=== PATIENT | female | born 1960 | race Caucasian/White ===

== ENCOUNTER 2020-07-01 11:05 | Emergency (ER) | payer OTHER ==
[2020-07-01 11:21] VITALS: BP 124/80; PULSE 65; RESP 16; TEMP 98.3
[2020-07-01] MEDS ORDERED: DIPH,PERTUS(ACELL)TETVAC-LF 0.5 ML VIAL IM ONE (11:58)
[2020-07-01] MEDS ORDERED: LIDOCAINE 1% INJ 10MG/ML (20 ML MDV) SQ STA (11:58)
[2020-07-01] MEDS ORDERED: Acetaminophen-Codeine 300-30mg TAB PO STA (11:59)
--- NOTE | 2020-07-01 12:42 | CT ---
EXAMINATION TYPE: CT brain cspine wo con, CT facial bones wo con DATE OF EXAM: 07/01/2020 COMPARISON: NONE HISTORY: Trauma today. head and facial along with neck pain. CT DLP: 1349.7 mGycm. Automated Exposure Control for Dose Reduction was Utilized. TECHNIQUE: CT scan of the head and cervical spine are performed without contrast. FINDINGS: There is no acute intracranial hemorrhage, mass effect, or midline shift identified. The ventricles and sulci are within normal limits in size. Some low attenuation in the deep and perivent ricular white matter. The calvarium is intact. The mandible is intact. The temporomandibular joints are maintained bilaterally. Nasal bones are inta ct. Nasal septum slightly deviated to left of midline. Orbital floors and nina are intact. The globe s are intact bilaterally. Intraconal fat is preserved bilaterally. Zygomatic arches are intact. The p terygoid plates are intact. There is large mucous retention cyst or polyp in the inferior posterior l eft maxillary sinus otherwise paranasal sinuses are clear. Cervical spine is visualized in its entirety from C1 through upper thoracic levels and demonstrates s traightened alignment without evidence of acute fracture or dislocation. Prevertebral soft tissue ap pears within normal limits. The C1-C2 articulation is within normal limits on the coronal images. Ve rtebral body heights and disc space heights are maintained. Posterior spur disc complexes efface the anterior thecal sac at C4-C5 and C5-C6 levels on sagittal and axial images. [id number] multilev el anterior spurring is present. Review of axial images shows multiple vertebral facet degenerative c hanges at left C2-C3 and C3-C4 level along with right-sided uncovertebral facet spurring at C4-C5 lev el. Thyroid gland is small in size. Lung apices show no pneumothorax. IMPRESSION: 1. There is no acute fracture or dislocation evident in the cervical spine. 2. No acute intracranial hemorrhage or midline shift is seen. \3. No acute displaced facial bone fracture.
--- NOTE | 2020-07-01 12:54 | XR ---
EXAMINATION TYPE: XR knee complete LT DATE OF EXAM: 07/01/2020 CLINICAL HISTORY: Pain after fall injury. TECHNIQUE: Three views of the left knee are obtained. COMPARISON: None. FINDINGS: There is no acute fracture/dislocation evident in left knee. Metallic hardware from total left knee arthroplasty is satisfactory in position. The overlying soft tissue appears unremarkable. IMPRESSION: As above.
--- NOTE | 2020-07-01 12:56 | XR ---
EXAMINATION TYPE: XR Hip RT and AP Pelvis DATE OF EXAM: 07/01/2020 COMPARISON: NONE HISTORY: Trauma and pain TECHNIQUE: AP view of the pelvis is obtained on 2 images. Two views of the right hip are obtained. FINDINGS: There is no acute fracture/dislocation evident in the pelvis. The hip and sacroiliac join ts appear symmetric and unremarkable. The overlying soft tissue appears unremarkable. Two views of right hip show no acute fracture or dislocation. No focal lytic or sclerotic lesion see n in the proximal right femur. The overlying soft tissue is unremarkable. IMPRESSION: There is no acute fracture or dislocation in the pelvis or right hip.
--- NOTE | 2020-07-01 12:58 | XR ---
Right shoulder HISTORY: Trauma and pain 3 views the right shoulder correlated prior exam 08/13/2013 Arthropathy is present at the acromioclavicular joint. Pseudocyst formation suspected within the carmina ral head. There is arthropathy at the glenohumeral joint. Right lung apex as visualized is normal. Lauro ne mineralization and alignment are maintained. IMPRESSION: No fracture or dislocation.
--- NOTE | 2020-07-01 13:10 | ED ---
General Adult HPI - General Chief complaint: Fall Stated complaint: fall head lac Time Seen by Provider: 07/01/20 11:22 Source: patient, RN notes reviewed Mode of arrival: wheelchair Limitations: no limitations - History of Present Illness Initial comments: CT facial bones shows no acute fracture. CT cervical spine shows no acute fracture or dislocation. CT head shows no acute intracranial hemorrhage or midline shift. X-ray of the right hip and pelvis shows no acute fracture x-ray of the right knee shows no acute fracture or dislocation. Metallic hardware in satisfactory position. X-ray of the right shoulder shows no fracture or dislocation. - Related Data Home Medications Medication Instructions Recorded Confirmed No Known Home Medications 07/01/20 07/01/20 Allergies Allergy/AdvReac Type Severity Reaction Status Date / Time bee pollen Allergy Swelling Verified 07/01/20 11:16 cortisone Allergy Swelling Verified 07/01/20 11:16 hydrocodone bitartrate Allergy Anaphylaxis Verified 07/01/20 11:16 [From Vicodin] Latex, Natural Rubber Allergy skin Verified 07/01/20 11:16 blisters propoxyphene napsylate Allergy Anaphylaxis Verified 07/01/20 11:16 [From Darvocet-N 100] Sulfa (Sulfonamide Allergy Anaphylaxis Verified 07/01/20 11:16 Antibiotics) adhesive tape AdvReac Rash/Hives/ Verified 07/01/20 13:24 Blisters Review of Systems ROS Statement: Those systems with pertinent positive or pertinent negative responses have been documented in the HPI. ROS Other: All systems not noted in ROS Statement are negative. Past Medical History Additional Past Medical History / Comment(s): right shoulder pain History of Any Multi-Drug Resistant Organisms: None Reported Past Surgical History: Hysterectomy, Joint Replacement, Orthopedic Surgery, Tubal Ligation Additional Past Surgical History / Comment(s): RIGHT KNEE SX X2 LAST ONE IN 2001, vaginal cyst removed, D & C. lt knee replacement Past Anesthesia/Blood Transfusion Reactions: No Reported Reaction Past Psychological History: No Psychological Hx Reported Smoking Status: Never smoker Past Alcohol Use History: Rare Past Drug Use History: None Reported - Past Family History Father Family Medical History: Cancer General Exam Limitations: no limitations Course Vital Signs 07/01/20 11:16 Temperature 98.3 F Pulse Rate 65 Respiratory 16 Rate Blood Pressure 124/80 O2 Sat by Pulse 99 Oximetry Procedures - Laceration Laceration #1 Consent Obtained: verbal consent Indication: laceration Site: face Size (cm): 3 Description: linear Depth: simple, single layer Type of Sutures: other (MicroMed) Technique: simple, interrupted Patient Tolerated Procedure: well, no complications Medical Decision Making - Medical Decision Making Vitals are stable. HPI and physical exam is documented. Patient is well- appearing however he does have a 3 cm laceration noted to the midforehead. GCS 15. Alert and oriented. CT cervical spine shows no acute fracture or dislocation. CT brain shows no acute intracranial hemorrhage or midline shift. CT facial bones shows no acute displaced facial bone fracture. X-ray of the right hip shows no acute fracture or dislocation. Patient is ambulatory in the right hip. X-ray of the right knee is unremarkable. No acute fracture or dislocation. Hardware is in satisfactory position. Shoulder x-ray shows no fracture or dislocation. Laceration was repaired using MicroMed. Patient will follow-up with primary care. She'll return here for any worsening symptoms. Disposition Clinical Impression: Laceration, Fall, Head injury Disposition: HOME SELF-CARE Condition: Good Instructions (If sedation given, give patient instructions): Laceration (ED), Head Injury (ED) Additional Instructions: Please monitor for signs of infection such as spreading or streaking redness, drainage, or fever. Stitches can be removed in 5 days. You may do this at home or come back to the ER. Return to the emergency room for any worsening symptoms. Is patient prescribed a controlled substance at d/c from ED?: No Referrals: Heriberto Herrera MD [Primary Care Provider] - 1-2 days Time of Disposition: 13:34
[2020-07-01] MEDS ORDERED: ACET/COD 300 MG/30 MG STARTER PACK 6 TAB BTL PO STA (13:33)
== END 2020-07-01 13:46 | disposition home or self-care (01) ==
LOC: EC 11:05
DX: S01.91XA Laceration without foreign body of unspecified part of head, initial encounter (principal); Z23 Encounter for immunization; Z96.652 Presence of left artificial knee joint; Z91.030 Bee allergy status; Z88.2 Allergy status to sulfonamides; Z88.5 Allergy status to narcotic agent; Z88.6 Allergy status to analgesic agent; Z88.8 Allergy status to other drugs, medicaments and biological substances; Z91.040 Latex allergy status; Z91.048 Other nonmedicinal substance allergy status; W01.0XXA Fall on same level from slipping, tripping and stumbling without subsequent striking against object, initial encounter
CPT/HCPCS: 73502; 73030; 73562; 72125; 70486; 70450; 90715; 99283; 12013; 90471; J2001

== ENCOUNTER 2021-01-18 03:19 | Observation (INO) | payer OTHER ==
--- NOTE | 2021-01-18 03:30 | ED ---
ENT HPI - General Chief complaint: ENT Stated complaint: earache Time Seen by Provider: 01/18/21 03:22 Source: patient Mode of arrival: ambulatory Limitations: no limitations - Related Data Previous Rx's Medication Instructions Recorded Amoxic-Pot Clav 875-125Mg 1 tab PO Q12HR #20 tablet 01/18/21 [Augmentin 875-125] Allergies Allergy/AdvReac Type Severity Reaction Status Date / Time bee pollen Allergy Swelling Verified 01/18/21 03:23 cortisone Allergy Swelling Verified 01/18/21 03:23 hydrocodone bitartrate Allergy Anaphylaxis Verified 01/18/21 03:23 [From Vicodin] Latex, Natural Rubber Allergy skin Verified 01/18/21 03:23 blisters propoxyphene napsylate Allergy Anaphylaxis Verified 01/18/21 03:23 [From Darvocet-N 100] Sulfa (Sulfonamide Allergy Anaphylaxis Verified 01/18/21 03:23 Antibiotics) adhesive tape AdvReac Rash/Hives/ Verified 01/18/21 03:23 Blisters Review of Systems ROS Statement: Those systems with pertinent positive or pertinent negative responses have been documented in the HPI. ROS Other: All systems not noted in ROS Statement are negative. Past Medical History Additional Past Medical History / Comment(s): right shoulder pain History of Any Multi-Drug Resistant Organisms: None Reported Past Surgical History: Hysterectomy, Joint Replacement, Orthopedic Surgery, Tubal Ligation Additional Past Surgical History / Comment(s): RIGHT KNEE SX X2 LAST ONE IN 2001, vaginal cyst removed, D & C. lt knee replacement Past Anesthesia/Blood Transfusion Reactions: No Reported Reaction Past Psychological History: No Psychological Hx Reported Smoking Status: Never smoker Past Alcohol Use History: Rare Past Drug Use History: None Reported - Past Family History Father Family Medical History: Cancer General Exam Limitations: no limitations Course Vital Signs 01/18/21 03:19 Temperature 97.9 F Pulse Rate 80 Respiratory 20 Rate Blood Pressure 142/85 O2 Sat by Pulse 99 Oximetry Medical Decision Making - Lab Data Result diagrams: 01/18/21 04:42 Lab Results 01/18/21 Range/Units 04:42 WBC 5.7 (3.8-10.6) k/uL RBC 4.88 (3.80-5.40) m/uL Hgb 15.7 (11.4-16.0) gm/dL Hct 45.6 (34.0-46.0) % MCV 93.4 (80.0-100.0) fL MCH 32.2 (25.0-35.0) pg MCHC 34.4 (31.0-37.0) g/dL RDW 12.3 (11.5-15.5) % Plt Count 164 (150-450) k/uL MPV 7.5 Neutrophils % 58 % Lymphocytes % 29 % Monocytes % 8 % Eosinophils % 3 % Basophils % 1 % Neutrophils # 3.4 (1.3-7.7) k/uL Lymphocytes # 1.6 (1.0-4.8) k/uL Monocytes # 0.4 (0-1.0) k/uL Eosinophils # 0.2 (0-0.7) k/uL Basophils # 0.1 (0-0.2) k/uL - EKG Data -: EKG Interpreted by Me (EKG shows nsr 66 SC 188 QRS 78 QTc 436) Disposition Clinical Impression: Neuralgia Condition: Good Prescriptions: Amoxic-Pot Clav 875-125Mg [Augmentin 875-125] 1 tab PO Q12HR #20 tablet Is patient prescribed a controlled substance at d/c from ED?: No Referrals: None,Stated [Primary Care Provider] - 1-2 days
[2021-01-18] MEDS ORDERED: MORPHINE SULFATE 4 MG/ML SYRINGE IV STA (03:39)
[2021-01-18] MEDS ORDERED: PIPERACILLIN-TAZOBACTAM 3.375 GM in SODIUM CHLORIDE 0.9% 100 ML IVPB STA (03:39)
[2021-01-18] MEDS ORDERED: SODIUM CHLORIDE 0.9% 1,000 ML IV STA ×2 (03:39)
--- NOTE | 2021-01-18 05:00 | CT ---
EXAM: CT Temporal Bones Without Intravenous Contrast CLINICAL HISTORY: ITS.REASON CT Reason: mastoiditis TECHNIQUE: Axial computed tomography images of the temporal bones without intravenous contrast. CTDI is 28.17 mGy and DLP is 303.7 mGy-cm. This CT exam was performed using one or more of the following dose reduction techniques: automated exposure control, adjustment of the mA and/or kV according to patient size, and/or use of iterative reconstruction technique. COMPARISON: No relevant prior studies available. FINDINGS: Right ossicles and middle ear: Unremarkable. Right cochlea: Unremarkable. Right vestibule: Unremarkable. Right semicircular canals: Unremarkable. Right vestibular and cochlear aqueducts: Unremarkable. Right facial nerve canal: Unremarkable. Right internal auditory canal: Unremarkable. Right external auditory canal: Unremarkable. Right carotid canal: Unremarkable. Right jugular foramen: Unremarkable. Right mastoid air cells: Unremarkable. Right temporomandibular joint: Unremarkable. Left ossicles and middle ear: Unremarkable. Left cochlea: Unremarkable. Left vestibule: Unremarkable. Left semicircular canals: Unremarkable. Left vestibular and cochlear aqueducts: Unremarkable. Left facial nerve canal: Unremarkable. Left internal auditory canal: Unremarkable. Left external auditory canal: Unremarkable. Left carotid canal: Unremarkable. Left jugular foramen: Unremarkable. Left mastoid air cells: Unremarkable. Left temporomandibular joint: Unremarkable. Bones/joints: No acute fracture. Soft tissues: Unremarkable. Left maxillary sinus mucosal retention cyst. IMPRESSION: No evidence of mastoiditis.
[2021-01-18] MEDS ORDERED: KETOROLAC 15 MG/ML 1 ML VIAL IVP STA (05:05)
[2021-01-18] MEDS ORDERED: ACET/COD 300 MG/30 MG STARTER PACK 6 TAB BTL PO STA (05:05)
[2021-01-18] MEDS ORDERED: CIPROFLOXACIN-DEXAMETH 0.3-0.1% DROPS 7.5 ML BTL RIGHT EAR STA (05:05)
[2021-01-18 05:06] LABS: Basophils # (A) 0.1 k/uL (0-0.2); Basophils % (A) 1 %; Eosinophils # (A) 0.2 k/uL (0-0.7); Eosinophils % (A) 3 %; HCT 45.6 % (34.0-46.0); HGB 15.7 gm/dL (11.4-16.0); Lymphocytes # (A) 1.6 k/uL (1.0-4.8); Lymphocytes % (A) 29 %; MCH 32.2 pg (25.0-35.0); MCHC 34.4 g/dL (31.0-37.0); MCV 93.4 fL (80.0-100.0); Mean Platelet Volume 7.5; Monocytes # (A) 0.4 k/uL (0-1.0); Monocytes % (A) 8 %; Neutrophils # (A) 3.4 k/uL (1.3-7.7); Neutrophils % (A) 58 %; Platelet Count 164 k/uL (150-450); RBC 4.88 m/uL (3.80-5.40); RDW 12.3 % (11.5-15.5); WBC 5.7 k/uL (3.8-10.6)
[2021-01-18] MEDS ORDERED: carBAMazepine 300 MG CPMP.12HR PO STA (05:13)
[2021-01-18] MEDS ORDERED: HYDROmorphone 1 MG/ML 1 ML SYRINGE IVP STA (05:13)
[2021-01-18 05:16] LABS: INR 0.9 (<1.2); Partial Thromboplastin Time 22.1 sec (22.0-30.0); Prothrombin Time 9.5 sec (9.0-12.0)
[2021-01-18 05:17] LABS: Albumin 4.5 g/dL (3.5-5.0); Calcium 9.6 mg/dL (8.4-10.2); Total Bilirubin 0.5 mg/dL (0.2-1.3); Total Protein 7.6 g/dL (6.3-8.2)
[2021-01-18 05:41] LABS: Magnesium 2.1 mg/dL (1.6-2.3); Potassium 4.5 mmol/L (3.5-5.1)
[2021-01-18 06:00] LABS: Appearance,Urine Clear (Clear); Bilirubin,Urine Negative (Negative); Blood,Urine Negative (Negative); Color,Urine Yellow; Glucose,Urine (UA) Negative (Negative); Ketones,Urine Negative (Negative); Leukocyte Esterase,Urine Negative (Negative); Nitrite,Urine Negative (Negative); PH, Urine 5.5 (5.0-8.0); Protein,Urine Negative (Negative); Specific Gravity,Urine 1.021 (1.001-1.035); Urobilinogen,Urine <2.0 mg/dL (<2.0)
[2021-01-18 06:53] VITALS: RESP 18
[2021-01-18 08:32] VITALS: TEMP 97.8
[2021-01-18] MEDS ORDERED: IBUPROFEN 400 MG TAB PO PRN (09:32)
[2021-01-18] MEDS ORDERED: ACETAMINOPHEN TAB 325 MG TAB PO PRN (09:32)
[2021-01-18] MEDS ORDERED: PREGABALIN 75 MG CAP PO SCH ×2 (11:30→12:00)
--- NOTE | 2021-01-18 12:04 | P.CNNES ---
History of Present Illness Consult date: 01/18/21 Requesting physician: Mainnder De La Cruz Reason for Consult: Trigeminial Neuralgia History of Present Illness: This is a 60 year-old woman with history of left knee replacement and tobacco use the presented emergency department on 01/18/2021 for pain behind the right ear. According to the patient she notes that she's having pain behind the right ear that started this past Monday and would that be intermittent. She had a hard time describing it but she said the somewhat like electrical shock but not exactly and the last few seconds then resolved I would happened the every couple minutes. She felt the severity of the pain was getting worse at. As well as she is having the pain around the ear she said it wasn't in her ear but just felt outside. Denies any numbness tingling over the face, visual disturbance, any the numbness tingling of her upper or lower extremities, any focal weakness, any difficulty swallowing or difficulty getting her words out. Denies of any history of stroke or TIAs in the past. Because of the severity of the pain she was taking [id number] pain medication such as ibuprofen and she said that that wasn't helping. He denies off any fever, and hearing loss. She was given multiple pain medication the hospital and she felt that she's doing much better and that pain control. She denies any history of headaches in the past. Denies any history of multiple sclerosis. Patient stated that one pack lasting for 3 days. She smokes on and off throughout her life but she says she had more nonsmoking days than smoking. She socially drinks alcohol. Some of the work-up in the hospital consisted of: Initial vital signs: Blood pressure of 142/85, heart rate of 80, temperature of 97.9 Fahrenheit oral, respiratory of 20 pulse ox of 99% room air. CT temporal bone without contrast is reported as no evidence of mastoiditis. White blood cell is 5.7 which is normal. Basic chemistry panel is the pertinent positive was the CK level of 179 is mildly elevated. Otherwise rest of basic chemistry panel are within normal limits. Review of Systems Review of system: The 12 point system was reviewed and apparent positive and negative per HPI. Past Medical History Additional Past Medical History / Comment(s): right shoulder pain History of Any Multi-Drug Resistant Organisms: None Reported Past Surgical History: Hysterectomy, Joint Replacement, Orthopedic Surgery, Tubal Ligation Additional Past Surgical History / Comment(s): RIGHT KNEE SX X2 LAST ONE IN 2001, vaginal cyst removed, D & C. lt knee replacement Past Anesthesia/Blood Transfusion Reactions: No Reported Reaction Past Psychological History: No Psychological Hx Reported Smoking Status: Never smoker Past Alcohol Use History: Rare Past Drug Use History: None Reported - Past Family History Father Family Medical History: Cancer Medications and Allergies Home Medications Medication Instructions Recorded Confirmed Type Pregabalin [Lyrica] 150 mg PO BID #20 cap 01/18/21 Rx Allergies Allergy/AdvReac Type Severity Reaction Status Date / Time bee pollen Allergy Swelling Verified 01/18/21 07:12 cortisone Allergy Swelling Verified 01/18/21 07:12 hydrocodone bitartrate Allergy Anaphylaxis Verified 01/18/21 07:12 [From Vicodin] Latex, Natural Rubber Allergy skin Verified 01/18/21 07:12 blisters propoxyphene napsylate Allergy Anaphylaxis Verified 01/18/21 07:12 [From Darvocet-N 100] Sulfa (Sulfonamide Allergy Anaphylaxis Verified 01/18/21 07:12 Antibiotics) adhesive tape AdvReac Rash/Hives/ Verified 01/18/21 07:12 Blisters Physical Examination - Vital Signs Vital Signs: Vital Signs Temp Pulse Resp BP Pulse Ox 01/18/21 10:05 66 18 109/64 96 01/18/21 08:31 97.8 F 64 18 104/63 98 01/18/21 06:51 67 18 102/72 97 01/18/21 03:19 97.9 F 80 20 142/85 99 Intake and Output 01/17/21 01/18/21 01/18/21 22:59 06:59 14:59 Other: Weight 95.254 kg GENERAL: The patient is lying in bed and is not in acute distress. HENT: Tenderness to touch over the right mastoid region. No redness of the region. CHEST: The heart rate is regular rate rhythm. No murmurs to auscultation. No carotid bruit bilaterally. LUNG: Clear to auscultation bilaterally no wheezing noted throughout. Not labored breathing. ABDOMEN/GI: Bowel sounds present in all 4 quadrants. No tenderness to palpation throughout. NEUROLOGICAL: Higher mental function: The patient is awake, alert, oriented to self, place and time. Patient is following commands. No aphasia and no neglect. Cranial nerves: The pupils are round, equal and reactive to light and accommodation. Visual kaur are full to confrontation throughout. Extraocular movement is intact no nystagmus is noted. Facial sensation is normal to touch throughout. The facial strength is normal throughout. Hearing is normal bilaterally to hand rub. Tongue is midline and moved [id number] without any difficulty. No dysarthria is noted. Rotating the head was slightly limited to because of pain but was able to rotated entirely to right and left. Shoulder shrug is normal bilaterally. Motor: Gait is normal with normal arm swings. The strength is 5 over 5 throughout. Normal tone and bulk. Cerebellum: Normal finger to nose bilaterally. Sensation: Sensation is normal to touch throughout. Reflexes (right/left): 1+ of left knee (knee replacement) and bilateral ankles. Otherwise 2+ throughout. Plantars are downgoing bilaterally. Results Urinalysis is negative for urinary tract infection. Spangler virus PCR was not detected - Laboratory Findings CBC and BMP: 01/18/21 04:42 01/18/21 04:42 Abnormal Lab Findings: Abnormal Labs 01/18/21 04:42 Chloride 109 H BUN 27 H Creatine Kinase 179 H Assessment and Plan Assessment: Pain over the right mastoid. Rule out mastoiditis. Another possibility is occipital neuralgia. Trigemenial Neuralgia (low on differential since not involving V1/V2 or V3 distribution). Tobacco use Plan: Patient also was given Zosyn once in the ED, Dilaudid once morphine 4 mg once and Toradol 50 mg once in the ED. I ordered CT of the brain with and without. I recommend MRI of the brain with and without, MRI of the mastoid and MRI of auditory (right) and patient stated she wants them as outpatient since does not want to wait in the hospital. The patient was started on Tegretol 600 mg once in the ED then was started on Tegretol 300 mg 1 tablet twice a day by ED team. I decreased the Tegretol to 200 mg daily and down the line can be titrated up if needed. I started the patient on Lyrica 75 mg 1 tablet twice a day (she said she could not tolerate Gabapentin in the past). Recommend the patient to follow-up with Neurologist and ENT specialist as an outpatient within 1-2 weeks. We'll defer the rest of the medical management to the primary team. Thank you for the consult. Darren Oconnor M.D. Neuro-hospitalist Time with Patient: Greater than 30
--- NOTE | 2021-01-18 12:56 | P.HPIM ---
History of Present Illness 60-year-old female came in with the pain in the right mastoid area which is a sharp and electric shocklike sensation. Patient denied anything and pain on the face. Patient appears to have tenderness in the sternocleidomastoid insertion location on the mastoid. Patient doesn't have any problem with neck movements denied any neck pain. Initial concern was mastoiditis although ear cannot CT was negative for any infection patient the ear exam was within normal limits except for some tenderness in the mastoid area as mentioned above. Patient was a valid by neurology for possibility of trigeminal neuralgia patient clinically doesn't appear to have trigeminal neuralgia patient was started on Cardizem pain which will be discontinued. Neurology is a 20 CT of the head. Patient was taking Motrin and Tylenol at home without any significant improvement in her pain. A CT of the head didn't show any significant abnormality, patient will be discharged on lyrica as recommended by neurology. Review of Systems REVIEW OF SYSTEMS: CONSTITUTIONAL: No fever, no malaise, no fatigue. HEENT: No recent visual problems or hearing problems. Denied any sore throat. CARDIOVASCULAR: No chest pain, orthopnea, PND, no palpitations, no syncope. PULMONARY: No shortness of breath, no cough, no hemoptysis. GASTROINTESTINAL: No diarrhea, no nausea, no vomiting, no abdominal pain. NEUROLOGICAL: No headaches, no weakness, no numbness. HEMATOLOGICAL: Denies any bleeding or petechiae. GENITOURINARY: Denies any burning micturition, frequency, or urgency. MUSCULOSKELETAL/RHEUMATOLOGICAL: Denies any joint pain, swelling, or any muscle pain. ENDOCRINE: Denies any polyuria or polydipsia. The rest of the 14-point review of systems is negative. Past Medical History Additional Past Medical History / Comment(s): right shoulder pain History of Any Multi-Drug Resistant Organisms: None Reported Past Surgical History: Hysterectomy, Joint Replacement, Orthopedic Surgery, Tubal Ligation Additional Past Surgical History / Comment(s): RIGHT KNEE SX X2 LAST ONE IN 2001, vaginal cyst removed, D & C. lt knee replacement Past Anesthesia/Blood Transfusion Reactions: No Reported Reaction Past Psychological History: No Psychological Hx Reported Smoking Status: Never smoker Past Alcohol Use History: Rare Past Drug Use History: None Reported - Past Family History Father Family Medical History: Cancer Medications and Allergies Home Medications Medication Instructions Recorded Confirmed Type Pregabalin [Lyrica] 150 mg PO BID #20 cap 01/18/21 Rx Allergies Allergy/AdvReac Type Severity Reaction Status Date / Time bee pollen Allergy Swelling Verified 01/18/21 07:12 cortisone Allergy Swelling Verified 01/18/21 07:12 hydrocodone bitartrate Allergy Anaphylaxis Verified 01/18/21 07:12 [From Vicodin] Latex, Natural Rubber Allergy skin Verified 01/18/21 07:12 blisters propoxyphene napsylate Allergy Anaphylaxis Verified 01/18/21 07:12 [From Darvocet-N 100] Sulfa (Sulfonamide Allergy Anaphylaxis Verified 01/18/21 07:12 Antibiotics) adhesive tape AdvReac Rash/Hives/ Verified 01/18/21 07:12 Blisters Physical Exam Vitals: Vital Signs Temp Pulse Resp BP Pulse Ox 01/18/21 10:05 66 18 109/64 96 01/18/21 08:31 97.8 F 64 18 104/63 98 01/18/21 06:51 67 18 102/72 97 01/18/21 03:19 97.9 F 80 20 142/85 99 Intake and Output 01/17/21 01/18/21 01/18/21 22:59 06:59 14:59 Other: Weight 95.254 kg PHYSICAL EXAMINATION: GENERAL: The patient is alert and oriented x3, not in any acute distress. Well developed, well nourished. HEENT: Pupils are round and equally reacting to light. EOMI. No scleral icterus. No conjunctival pallor. Normocephalic, atraumatic. No pharyngeal erythema. No thyromegaly. Otoscopic exam did not reveal any significant abnormality except for mild wax there is some tenderness at the insertion location of sternocleidomastoid in the mastoid area on the right side CARDIOVASCULAR: S1 and S2 present. No murmurs, rubs, or gallops. PULMONARY: Chest is clear to auscultation, no wheezing or crackles. ABDOMEN: Soft, nontender, nondistended, normoactive bowel sounds. No palpable organomegaly. MUSCULOSKELETAL: No joint swelling or deformity. EXTREMITIES: No cyanosis, clubbing, or pedal edema. NEUROLOGICAL: Gross neurological examination did not reveal any focal deficits. SKIN: No rashes. Results CBC & Chem 7: 01/18/21 04:42 01/18/21 04:42 Labs: Abnormal Lab Results - Last 24 Hours (Table) 01/18/21 Range/Units 04:42 Chloride 109 H (98-107) mmol/L BUN 27 H (7-17) mg/dL Creatine Kinase 179 H (30-135) U/L Assessment and Plan Plan: -Tenderness in the right mastoid area: Probably due to some tendinitis of sternocleidomastoid, advised heat pack nonsteroidal anti-inflammatory patient will follow-up with ENT ENT exam, otoscopic exam,ear canal CT were within normal limits there is no evidence of infection at this time. Patient will continue her Tylenol and Motrin as needed. Lyrica was added as recommended by neurology possibly of trigeminal neurology as low.
--- NOTE | 2021-01-18 12:57 | P.DS ---
Providers Date of admission: 01/18/21 05:13 Attending physician: Joby Mcdonald Consults: 01/18/21 05:13 Consult Physician Routine Consulting Provider: Ernesto Joy Consult Reason/Comments: trigeminalNeuralgia?? Do you want consulting provider notified?: Yes Primary care physician: Stated None Hospital Course: Please refer to HPI for further details Patient Condition at Discharge: Good Plan - Discharge Summary New Discharge Prescriptions: New Pregabalin [Lyrica] 150 mg PO BID #20 cap Discharge Medication List Pregabalin [Lyrica] 150 mg PO BID #20 cap 01/18/21 [Rx] Follow up Appointment(s)/Referral(s): Dimas Castillo DO [Doctor of Osteopathic Medicine] - 1-2 Days Dariela Gibson MD [STAFF PHYSICIAN] - 1 Week Silas Argueta MD [Medical Doctor] - 1-2 Days Activity/Diet/Wound Care/Special Instructions: Heat pack and the location of tenderness behind the right ear Discharge Disposition: HOME SELF-CARE
--- NOTE | 2021-01-18 13:30 | CT ---
EXAMINATION TYPE: CT brain wo/w con DATE OF EXAM: 01/18/2021 COMPARISON: CT brain dated 07/01/2020. HISTORY: headache CT DLP: 3075.1 mGycm Automated exposure control for dose reduction was used. CONTRAST: CT scan of the head is performed without and with IV Contrast, patient injected with 100ml mL of Isov ue 300. FINDINGS: Noncontrast images show no acute intracranial hemorrhage or midline shift. There is focus of low atte nuation in the left frontal white matter redemonstrated. Ventricles and sulci are within normal limit s in size for patient's age. No suspicious enhancement or enhancing masses identified on postcontrast images there is large mucous retention cyst and/or polyp in the posterior inferior left maxillary si nus partially imaged. Nasal septum remains deviated to the left of midline. Hyperostosis frontalis. T he globes are intact bilaterally. IMPRESSION: Xijt-[id number] nonspecific white matter changes presumed product of chronic small vesse l ischemic change in patient of this age. No suspicious enhancing masses noted.
[2021-01-18 14:10] VITALS: BP 114/63; PULSE 73
[2021-01-19] MEDS ORDERED: carBAMazepine 200 MG TAB PO SCH (09:00)
[2021-01-19] MEDS ORDERED: carBAMazepine 300 MG CPMP.12HR PO SCH (09:00)
== END 2021-01-18 14:26 | disposition home or self-care (01) ==
LOC: EC 03:19 → 6NMEDSUR 05:13
PROVIDERS: ADMIT Hospitalist; ATTEND Hospitalist
DX: H92.01 Otalgia, right ear (principal); M79.2 Neuralgia and neuritis, unspecified; R74.8 Abnormal levels of other serum enzymes; J34.1 Cyst and mucocele of nose and nasal sinus; F17.210 Nicotine dependence, cigarettes, uncomplicated; M25.511 Pain in right shoulder; Z20.822 Contact with and (suspected) exposure to COVID-19; Z91.030 Bee allergy status; Z91.040 Latex allergy status; Z88.5 Allergy status to narcotic agent; Z88.2 Allergy status to sulfonamides; Z91.048 Other nonmedicinal substance allergy status; Z90.710 Acquired absence of both cervix and uterus; Z98.51 Tubal ligation status; Z96.652 Presence of left artificial knee joint; Z98.890 Other specified postprocedural states; Z80.9 Family history of malignant neoplasm, unspecified
CPT/HCPCS: 96361; 96365; 96366; 96375; 99285; 36415; 93005; 80053; 82550; 83605; 83735; 84100; 84484; 85025; 85610; 85730; 81003; 87040; 87635; 70470; 70480; G0378; J2543; J2270; J1170; J1885; Q9967

== ENCOUNTER → 2021-06-08 | Outpatient (CLI) | payer OTHER | END | disposition home or self-care (01) | LOC: LABWHC1 08:57 | PROVIDERS: ATTEND Family Medicine | DX: Z20.822 Contact with and (suspected) exposure to COVID-19 (principal); J06.9 Acute upper respiratory infection, unspecified | CPT/HCPCS: U0003; U0005 ==

== ENCOUNTER → 2021-08-09 | Outpatient (CLI) | payer OTHER ==
--- NOTE | 2021-08-09 12:26 | XR ---
Right foot and right ankle HISTORY: Pain, M 79.61 3 views of the right foot, 3 views of the right ankle There is a plantar calcaneal spur. Enthesophyte present at the insertion of the Achilles tendon. Spur ring is present at the intertarsal joints, tarsometatarsal joints, some joint space loss the metatars ophalangeal joint of the first digit. No evident fracture or dislocation. Spurring also noted at the tibiotalar joint. There is soft tissue swelling at the ankle joint. Lucenc y present along the medial aspect of the ankle mortise could be due to an osteochondral injury. IMPRESSION: Osteoarthritis. Possible osteochondral fracture ankle mortise as described. Ankle MRI cou ld BE performed for additional information.
== END | disposition home or self-care (01) ==
LOC: RADXRMAIN 12:02
PROVIDERS: ATTEND Family Medicine
DX: M19.071 Primary osteoarthritis, right ankle and foot (principal); M77.31 Calcaneal spur, right foot

== ENCOUNTER 2022-01-09 19:50 | Emergency (ER) | payer OTHER ==
[2022-01-09 20:31] VITALS: BP 107/67; PULSE 93; RESP 18; TEMP 98.1
--- NOTE | 2022-01-09 21:01 | XR ---
EXAMINATION TYPE: XR lumbar spine 2 or 3V DATE OF EXAM: 01/09/2022 COMPARISON: NONE HISTORY: Pain TECHNIQUE: 3 views FINDINGS: The lumbar vertebra have normal alignment. Posterior elements are intact. Sacroiliac joints are intact. No compression fracture. IMPRESSION: Negative lumbar spine exam. No fracture.
--- NOTE | 2022-01-09 21:07 | XR ---
EXAMINATION TYPE: XR femur RT DATE OF EXAM: 01/09/2022 COMPARISON: NONE HISTORY: Pain TECHNIQUE: 4 views FINDINGS: Hip joint is intact. Knee joint is intact. I see no fracture or dislocation. IMPRESSION: Negative right femur exam.
[2022-01-09] MEDS ORDERED: ACETAMINOPHEN TAB 500 MG TAB PO STA (23:33)
[2022-01-09] MEDS ORDERED: ORPHENADRINE 30 MG/ML 2 ML VIAL IM STA (23:34)
[2022-01-09] MEDS ORDERED: KETOROLAC 15 MG/ML 1 ML VIAL IM STA (23:34)
--- NOTE | 2022-01-09 23:41 | ED ---
Fall HPI - General Chief Complaint: Fall Stated Complaint: Fall 1914 Lower back hip pain Time Seen by Provider: 01/09/22 23:25 Source: patient, RN notes reviewed Mode of arrival: wheelchair - History of Present Illness Initial Comments: This is a pleasant 61-year-old female who was out in the rain doing yardwork. Patient ended up doing the splits and pulling her right and left groin muscles. Patient states she also twisted her lower back. Patient denies any problems with balance urination. Injury occurred prior to arrival to our waiting room. Patient has been sitting out in the waiting room for a few hours. Patient denies any head or neck injury. Takes no medication. Denies any health problems. Patient is able to ambulate with increased pain. No headache, no fever or chills, no changes in vision or hearing, no sore throat or difficulty with speech, no neck pain, no chest pain or shortness of breath, no abdominal pain, no nausea or vomiting, no changes in urination or bowel movements, no numbness or tingling, , no skin rashes or lesions. MD Complaint: fall - Related Data Previous Rx's Medication Instructions Recorded Aspirin 81 mg PO DAILY #30 chewable 01/18/21 Pregabalin [Lyrica] 150 mg PO BID #20 cap 01/18/21 Acetaminophen [Tylenol] 500 mg PO Q4-6H PRN #24 tab 01/09/22 Cyclobenzaprine [Flexeril] 10 mg PO TID PRN #20 tab 01/09/22 Naproxen [Naprosyn] 375 mg PO Q12HR PRN #20 tablet 01/09/22 Allergies Allergy/AdvReac Type Severity Reaction Status Date / Time bee pollen Allergy Swelling Verified 01/09/22 20:32 cortisone Allergy Swelling Verified 01/09/22 20:32 hydrocodone bitartrate Allergy Anaphylaxis Verified 01/09/22 20:32 [From Vicodin] Latex, Natural Rubber Allergy skin Verified 01/09/22 20:32 blisters propoxyphene napsylate Allergy Anaphylaxis Verified 01/09/22 20:32 [From Darvocet-N 100] Sulfa (Sulfonamide Allergy Anaphylaxis Verified 01/09/22 20:32 Antibiotics) adhesive tape AdvReac Rash/Hives/ Verified 01/09/22 20:32 Blisters Review of Systems ROS Statement: Those systems with pertinent positive or pertinent negative responses have been documented in the HPI. ROS Other: All systems not noted in ROS Statement are negative. Past Medical History Additional Past Medical History / Comment(s): right shoulder pain History of Any Multi-Drug Resistant Organisms: None Reported Past Surgical History: Hysterectomy, Joint Replacement, Orthopedic Surgery, Tubal Ligation Additional Past Surgical History / Comment(s): RIGHT KNEE SX X2 LAST ONE IN 2001, vaginal cyst removed, D & C. lt knee replacement Past Anesthesia/Blood Transfusion Reactions: No Reported Reaction Past Psychological History: No Psychological Hx Reported Smoking Status: Never smoker Past Alcohol Use History: Rare Past Drug Use History: None Reported - Past Family History Father Family Medical History: Cancer General Exam - General Exam Comments Initial Comments: Condition does not appear to be ill or toxic. Vital signs stable, patient afeb rile General appearance: in distress Head exam: Present: atraumatic, normocephalic, normal inspection Eye exam: Present: normal appearance, PERRL, EOMI. Absent: scleral icterus, conjunctival injection, periorbital swelling ENT exam: Present: normal exam, mucous membranes moist Neck exam: Present: normal inspection, full ROM. Absent: tenderness, meningismus, lymphadenopathy Respiratory exam: Present: normal lung sounds bilaterally. Absent: respiratory distress, wheezes, rales, rhonchi, stridor Cardiovascular Exam: Present: regular rate, normal rhythm, normal heart sounds. Absent: systolic murmur, diastolic murmur, rubs, gallop, clicks GI/Abdominal exam: Present: soft, normal bowel sounds. Absent: distended, tenderness, guarding, rebound, rigid Extremities exam: Present: normal inspection, tenderness (Right hip flexors and adductors bilaterally. Increased pain with right hip flexion versus resistance and adduction versus resistance. No bony point tenderness. Distal sensation intact.), normal capillary refill. Absent: full ROM (Range motion limited by pain), pedal edema, joint swelling, calf tenderness Back exam: Present: normal inspection, full ROM, tenderness, paraspinal tenderness (Right lumbar paraspinal tenderness). Absent: CVA tenderness (R), vertebral tenderness Neurological exam: Present: alert, oriented X3, CN II-XII intact Psychiatric exam: Present: normal affect, normal mood Skin exam: Present: warm, dry, intact, normal color. Absent: rash Course Vital Signs 01/09/22 20:29 Temperature 98.1 F Pulse Rate 93 Respiratory 18 Rate Blood Pressure 107/67 O2 Sat by Pulse 97 Oximetry Medical Decision Making - Medical Decision Making -There are no red flags for concerning back pathology. Specifically: -No history of cancer, this is not a mass effect, MRI not indicated. -No anticoagulation, this is not a bleed. -No fevers, no IVDU, this is not an infectious process. -No trauma, no bony pain, x-rays are not indicated. -With a normal neuro exam, and no urinary or bowel retention or incontinence, there is no clinical sign of motor defect or cauda equina - MRI is not indicated at this point. -No pulsating abdominal mass or risk factors for AAA. -Pain is relieved with rest, which is also less concerning. -I do not believe that x-rays or emergent MRI is indicated at this time. -We will treat symptomatically and discharge home with follow up instructions. -Stretching/strengthening exercise given to patient and they will be referred to physical therapy -Patient is instructed to use [id number] analgesics as directed on packaging for pain. Vision symptomology consistent with bilateral groin strains and right hip flexor strain. Mild right lumbar strain. X-rays were ordered by provider in triage. We'll treat accordingly with muscle relaxants, anti-inflammatory medication and acetaminophen. Disposition Clinical Impression: Groin strain, Lumbar strain Narrative: Bilateral groin strain Disposition: HOME SELF-CARE Condition: Good Instructions (If sedation given, give patient instructions): Groin Strain (ED), Low Back Strain (ED) Additional Instructions: Apply ice 20 minutes on and off to the sore areas. Make a follow-up appointment with the orthopedic physician if the pain doesn't get better within the next 5 days. Take medications as directed. Follow-up with your regular physician as directed. Return to the ER immediately if any symptoms worsen, new symptoms arise, or any other problems develop. Is patient prescribed a controlled substance at d/c from ED?: No Referrals: Mauricio Ramon [Primary Care Provider] - 1-2 days Time of Disposition: 23:41
[2022-01-10] MEDS ORDERED: ACET/COD 300 MG/30 MG STARTER PACK 6 TAB BTL PO STA (00:06)
== END 2022-01-10 00:27 | disposition home or self-care (01) ==
LOC: EC 19:50
DX: S39.011A Strain of muscle, fascia and tendon of abdomen, initial encounter (principal); S39.012A Strain of muscle, fascia and tendon of lower back, initial encounter; W01.0XXA Fall on same level from slipping, tripping and stumbling without subsequent striking against object, initial encounter
CPT/HCPCS: 72100; 73552; 99284; 96372 ×2; J2360; J1885